=== PATIENT | male | born 1995 | race American Indian/Alaskan Native ===

== ENCOUNTER 2017-05-23 10:42 | Emergency (ER) | payer SELFPAY ==
[2017-05-23 10:52] VITALS: BP 127/65
--- NOTE | 2017-05-23 12:29 | Emergency Department Report ---
Chief Complaint: Extremity Injury, Lower Stated Complaint: RIGHT KNEE PAIN Time Seen by Provider: 05/23/17 12:17 - HPI History of Present Illness: Patient is a [id number] male who is coming in with right knee pain and swelling. Patient states this episode flared up several days ago. Patient has a history of knee injury in 2008. He is not seeing orthopedics and does have occasional episodes where he has swelling. Patient is walking with a limp. Patient states pain is 5 out of 10. There's been no new trauma. - Exam Vital Signs: Vital Signs 05/23/17 10:49 Temperature 98.6 F Pulse Rate 75 Respiratory 18 Rate Blood Pressure 127/65 O2 Sat by Pulse 96 Oximetry Physical Exam: Focused physical exam right knee has full range of motion. Patient can bear weight. Patient does have a minimal to moderate effusion clinically. There is no warmth there is no MSE screening note: Focused history and physical exam performed. Due to findings the following was ordered: Patient has been referred to outpatient clinic for referral. Patient does need orthopedics and name and number of orthopedic doctor has been given. Patient also given information on [facility]. ED Disposition for MSE Clinical Impression: Knee effusion, right Disposition: Z-07 MED SCREENING EXAM-LEFT Is pt being admited?: No Does the pt Need Aspirin: No Condition: Fair Instructions: Knee Effusion (ED) Referrals: JOSE A MERCADO MD [Primary Care Provider] - 3-5 Days
== END 2017-05-23 12:42 | disposition left against medical advice (07) ==
LOC: ED 10:42
DX: M25.561 Pain in right knee (principal); Z53.21 Procedure and treatment not carried out due to patient leaving prior to being seen by health care provider
CPT/HCPCS: 99282

== ENCOUNTER 2018-02-27 20:21 | Emergency (ER) | payer SELFPAY ==
[2018-02-27 20:36] VITALS: BP 135/77
[2018-02-27 22:42] LABS: Bilirubin,Urine NEG (Negative); Blood,Urine NEG (Negative); Color,Urine Yellow (Yellow); Mucus,Urine 2+ /HPF
[2018-02-27 22:48] LABS: WBC,Urine > 182.0 /HPF (0.0-6.0)
== END 2018-02-28 02:05 | disposition left against medical advice (07) ==
LOC: ED 20:21
DX: R39.198 Other difficulties with micturition (principal); Z53.21 Procedure and treatment not carried out due to patient leaving prior to being seen by health care provider
CPT/HCPCS: 81001; 87086

== ENCOUNTER 2018-03-09 10:40 | Emergency (ER) | payer SELFPAY ==
[2018-03-09 10:47] VITALS: BP 128/71
--- NOTE | 2018-03-09 11:24 | Emergency Department Report ---
ED Male HPI - General Chief complaint: Urogenital-Male Stated complaint: DIFFICULTY URINATING/CHEST PAIN Time Seen by Provider: 03/09/18 11:01 Source: patient Mode of arrival: Ambulatory Limitations: No Limitations - History of Present Illness Initial comments: This is a 22-year-old male nontoxic, well nourished in appearance, no acute signs of distress presents to the ED with c/o of penile discharge and dysuria x2 days. Patient denies any testicular pain or swelling. Patient denies any penile ulcers or lesions. Patient denies any nausea, vomiting, chest pain, shortness of breathe, fever, chills, headache, back pain, numbness, tingling, stiff neck. Patient denies any other urinary symptoms. Patient denies any drug allergies or PMH. MD Complaint: penile discharge, dysuria -: days(s) (2) Location: penis Radiation: none Severity: mild Severity scale (0 -10): 3 Quality: burning Consistency: constant Improves with: none Worsens with: urination discharge, dysuria. denies: swelling, mass, rash, urinary retention, blood in urine, fever, nausea/vomiting, incontinence - Related Data Sexually active: Yes Previous Rx's Medication Instructions Recorded Last Taken Type Sulfamethoxazole/Trimethoprim 1 each PO BID #14 tablet 03/09/18 Unknown Rx [Bactrim DS TAB] Allergies Allergy/AdvReac Type Severity Reaction Status Date / Time shrimp Allergy Swelling Verified 05/23/17 10:49 ED Review of Systems ROS: Stated complaint: DIFFICULTY URINATING/CHEST PAIN Other details as noted in HPI Constitutional: denies: chills, fever Eyes: denies: eye pain, eye discharge, vision change ENT: denies: ear pain, throat pain Respiratory: denies: cough, shortness of breath, wheezing Cardiovascular: denies: chest pain, palpitations Endocrine: no symptoms reported Gastrointestinal: denies: abdominal pain, nausea, diarrhea Genitourinary: dysuria, discharge. denies: urgency, frequency, hematuria Musculoskeletal: denies: back pain, joint swelling, arthralgia Skin: denies: rash, lesions Neurological: denies: headache, weakness, paresthesias Psychiatric: denies: anxiety, depression Hematological/Lymphatic: denies: easy bleeding, easy bruising ED Past Medical Hx - Past Medical History Previous Medical History?: No Additional medical history: right knee pain - Surgical History Past Surgical History?: No - Social History Smoking Status: Current Every Day Smoker Substance Use Type: Alcohol, Marijuana - Medications Home Medications: Home Medications Medication Instructions Recorded Confirmed Last Taken Type Sulfamethoxazole/Trimethoprim 1 each PO BID #14 tablet 03/09/18 Unknown Rx [Bactrim DS TAB] ED Physical Exam - General Limitations: No Limitations General appearance: alert, in no apparent distress - Head Head exam: Present: atraumatic, normocephalic - Eye Eye exam: Present: normal appearance - ENT ENT exam: Present: normal exam, mucous membranes moist - Neck Neck exam: Present: normal inspection - Respiratory Respiratory exam: Present: normal lung sounds bilaterally. Absent: respiratory distress - Cardiovascular Cardiovascular Exam: Present: regular rate, normal rhythm. Absent: systolic murmur, diastolic murmur, rubs, gallop - GI/Abdominal GI/Abdominal exam: Present: soft, normal bowel sounds - Rectal Rectal exam: Present: deferred - Extremities Exam Extremities exam: Present: normal inspection - Back Exam Back exam: Present: normal inspection - Neurological Exam Neurological exam: Present: alert, oriented X3 - Psychiatric Psychiatric exam: Present: normal affect, normal mood - Skin Skin exam: Present: warm, dry, intact, normal color. Absent: rash ED Course Vital Signs 03/09/18 10:44 Temperature 98.1 F Pulse Rate 76 Respiratory 16 Rate Blood Pressure 128/71 O2 Sat by Pulse 100 Oximetry - Reevaluation(s) Reevaluation #1: 03/09/18 11:27 Patient is speaking in full sentences with no signs of distress noted. ED Medical Decision Making - Medical Decision Making This is a 22-year-old male that presents with possible STD and UTI. Patient is stable was examined by me. There is no abdominal tenderness. No back pain. UA obtained. Gonorrhea chlamydia swab pending. Patient was instructed to return in 2 days for GC results. Patient wanted empirical treatment so patient received 250 mg Rocephin and 1 g of azithromycin by mouth. Patient was instructed to Follow-up with a primary care doctor in 3-5 days or if symptoms worsen and continue return to emergency room as soon as possible. At time of discharge, the patient does not seem toxic or ill in appearance. No acute signs of distress noted. Patient agrees to discharge treatment plan of care. No further questions noted by the patient. Critical care attestation.: If time is entered above; I have spent that time in minutes in the direct care of this critically ill patient, excluding procedure time. ED Disposition Clinical Impression: Possible exposure to STD UTI (urinary tract infection) Qualifiers: Urinary tract infection type: site unspecified Hematuria presence: without hematuria Qualified Code(s): N39.0 - Urinary tract infection, site not specified Disposition: TO HOME OR SELFCARE Is pt being admited?: No Does the pt Need Aspirin: No Condition: Stable Instructions: Safe Sex (ED), Urinary Tract Infection in Men (ED) Additional Instructions: Follow-up with a primary care doctor in 3-5 days or if symptoms worsen and continue return to emergency room as soon as possible. Prescriptions: Sulfamethoxazole/Trimethoprim [Bactrim DS TAB] 1 each PO BID #14 tablet Referrals: PRIMARY CARE, [Primary Care Provider] - 3-5 Days DAINA MASTERSON MD [Staff Physician] - 3-5 Days [facility] [Outside] - 3-5 Days [facility] [Outside] - 3-5 Days Forms: Work/School Release Form(ED)
[2018-03-09 11:34] LABS: Bilirubin,Urine NEG (Negative); Blood,Urine NEG (Negative); Color,Urine Yellow (Yellow); Mucus,Urine FEW /HPF; Protein,Urine <15 mg/dL mg/dL (Negative); Urobilinogen,Urine < 2.0 mg/dL (<2.0)
[2018-03-09] MEDS ORDERED: ZITHROMAX PO ONE (11:52)
[2018-03-09] MEDS ORDERED: ROCEPHIN IM ONE (11:52)
[2018-03-09] MEDS ORDERED: XYLOCAINE 1% MPF 5 mL INFILTRATI ONE (11:52)
== END 2018-03-09 12:07 | disposition home or self-care (01) ==
LOC: ED 10:40
DX: N39.0 Urinary tract infection, site not specified (principal); F17.200 Nicotine dependence, unspecified, uncomplicated; F12.10 Cannabis abuse, uncomplicated; Z91.013 Allergy to seafood
CPT/HCPCS: 81001; 87086; 87591; 96372; 99283; J0696

== ENCOUNTER 2019-04-08 15:47 | Emergency (ER) | payer SELFPAY | END 2019-04-08 17:47 | disposition left against medical advice (07) | LOC: ED 15:47 | DX: R30.0 Dysuria (principal); Z53.21 Procedure and treatment not carried out due to patient leaving prior to being seen by health care provider ==

== ENCOUNTER 2019-04-09 12:35 | Emergency (ER) | payer SELFPAY ==
[2019-04-09 12:44] VITALS: BP 127/70
--- NOTE | 2019-04-09 12:55 | Emergency Department Report ---
Chief Complaint: Urogenital-Male Stated Complaint: LIP SWELLING/CANT URINATE Time Seen by Provider: 04/09/19 12:41 - HPI History of Present Illness: This is a 23-year-old male nontoxic, well in appearance with no signs of distress presents to the ED for STD check. Stated has some penile discharge with dysuria. Patient also stated has pain the right upper lip and swelling. Denies any testicular pain, or swelling. Patient denies any other urinary symptoms. Denies any back pain or abdominal pain. Patient denies any fever, chills, headache, nausea, vomiting, chest pain or shortness of breathe. Denies any other symptoms or complaints. - Exam Vital Signs: Vital Signs 04/09/19 12:38 Temperature 98.6 F Pulse Rate 65 Respiratory 16 Rate Blood Pressure 127/70 O2 Sat by Pulse 96 Oximetry Physical Exam: no abdominal pain . no back pain. no testicular pain or swelling. no hematuria. MSE screening note: Focused history and physical exam performed. Due to findings the following was ordered: ED Medical Decision Making - Medical Decision Making This is a 23-year-old male that presents with nonmedical emergency complaint with possible STD exposure. Patient is just requested for a STD test. I gave patient many different referrals to follow-up with STD concerns. Patient was instructed to Follow-up with a primary care doctor in 3-5 days or if symptoms worsen and continue return to emergency room as soon as possible. At time of discharge, the patient does not seem toxic or ill in appearance. No acute signs of distress noted. Patient agrees to discharge treatment plan of care. No further questions noted by the patient. ED Disposition for MSE Clinical Impression: Possible exposure to STD Disposition: Z-07 MED SCREENING EXAM-LEFT Is pt being admited?: No Does the pt Need Aspirin: No Condition: Stable Instructions: Safe Sex (ED) Additional Instructions: Follow-up with all the referrals that you have been provided with [facility]INA or if symptoms worsen and continue return to emergency room as soon as possible. Referrals: PRIMARY CARE, [Primary Care Provider] - 3-5 Days DAINA MASTERSON MD [Staff Physician] - 3-[address] [facility] [Outside] - 3-5 Days [facility] [Outside] - 3-5 Days
== END 2019-04-09 13:15 | disposition left against medical advice (07) ==
LOC: ED 12:35
DX: Z11.3 Encounter for screening for infections with a predominantly sexual mode of transmission (principal)